=== PATIENT | male | born 1980 | race African-American/Black ===

== ENCOUNTER 2017-06-25 13:37 | Emergency (ER) | payer OTHER ==
[~2017-06-25] VITALS: Ht 175.3 cm; Wt 118.4 kg
[2017-06-25 14:07] VITALS: BP 151/99
[2017-06-25] MEDS ORDERED: TETANUS AND DIPHTHERIA TOX/PF 0.5 ML DISP.SYRIN. VAX IM ONE (14:30)
[2017-06-25] MEDS ORDERED: LIDOCAINE 1% / SOD BICARB 8.4% 20 ML VIAL. IJ ONE (14:30)
--- NOTE | 2017-06-25 15:01 | PHYS DOC ---
Past Medical History Past Medical History: Hypertension Past Surgical History: No Surgical History Alcohol Use: Occasionally Drug Use: None Adult General Chief Complaint Chief Complaint: LACERATION/AVULSION HPI HPI Patient is a 37 year old male presents to the ED complaining of left hand laceration 1 hour. Patient was doing some wood cutting and the saw cut his hand. Describes the pain as sharp. Rates the pain as 8/10. Patient has full range of motion. Denies fever, headache, chest pain, shortness of breath, wrist pain, decreased sensation or paresthesias. Review of Systems Review of Systems Constitutional: Denies fever or chills [] Eyes: Denies change in visual acuity, redness, or eye pain [] HENT: Denies nasal congestion or sore throat [] Respiratory: Denies cough or shortness of breath [] Cardiovascular: No additional information not addressed in HPI [] GI: Denies abdominal pain, nausea, vomiting, bloody stools or diarrhea [] : Denies dysuria or hematuria [] Musculoskeletal: Denies back pain. Complains of left hand pain. Integument: Denies rash or skin lesions [] Neurologic: Denies headache, focal weakness or sensory changes [] Endocrine: Denies polyuria or polydipsia [] Current Medications Current Medications Current Medications Medications (Trade) Dose Ordered Sig/Kelsi Start Time Stop Time Status Last Admin Dose Admin Bacitracin 1 robbie 1X STAT 06/25/17 15:41 06/25/17 15:44 DC 06/25/17 15:52 1 ROBBIE Lidocaine/Sodium Bicarbonate (Buffered Lidocaine 1%) 20 ml 1X ONCE 06/25/17 14:30 06/25/17 14:31 DC 06/25/17 14:41 20 ML Tetanus/ Diphtheria Toxoids (Tenivac Syringe) 0.5 ml ONCE ONCE 06/25/17 14:30 06/25/17 14:31 DC 06/25/17 14:41 0.5 ML Allergies Allergies Allergies Coded Allergies Type Severity Reaction Last Updated Verified No Known Drug Allergies 09/18/13 No Physical Exam Physical Exam Constitutional: Well developed, well nourished, no acute distress, non-toxic appearance. [] HENT: Normocephalic, atraumatic, bilateral external ears normal, oropharynx moist, no oral exudates, nose normal. [] Eyes: PERRLA, EOMI, conjunctiva normal, no discharge. [] Neck: Normal range of motion, no tenderness, supple, no stridor. [] Cardiovascular:Heart rate regular rhythm, no murmur [] Lungs & Thorax: Bilateral breath sounds clear to auscultation [] Abdomen: Bowel sounds normal, soft, no tenderness, no masses, no pulsatile masses. [] Skin: Warm, dry, no erythema or rash. [] Back: No tenderness, no CVA tenderness. [] Extremities: MILD LEFT HAND TENDERNESS. LEFT DORSAL LATERAL 5CM HAND LACERATION. NO TENDON LACERATION. no cyanosis, no clubbing, ROM intact, no edema. [] Neurologic: Alert and oriented X 3, normal motor function, normal sensory function, no focal deficits noted. [] Psychologic: Affect normal, judgement normal, mood normal. [] Current Patient Data Vital Signs Vital Signs Date Time Temp Pulse Resp B/P (MAP) Pulse Ox O2 Delivery O2 Flow Rate FiO2 06/25/17 14:07 98.2 100 18 100 Room Air 98.2 EKG EKG [] Radiology/Procedures Radiology/Procedures PROCEDURE: HAND LEFT 3V EXAM: Left hand, 3 views. HISTORY: Pain. COMPARISON: None. FINDINGS: Frontal, lateral and oblique views of the left hand are obtained. There is no fracture, dislocation or subluxation. IMPRESSION: No acute osseous finding. [] Course & Med Decision Making Course & Med Decision Making Discussed imaging with patient. Patient's pain improved. Vital stable, no acute distress. Laceration repaired. No complications. Tetanus updated. Keflex prescribed. Discussed follow-up with patient for wound reevaluation in 2-3 days. Discussed reasons to return to the ED. Patient understands and agrees with plan. Pertinent Labs and Imaging studies reviewed. (See chart for details) [] Dragon Disclaimer Dragon Disclaimer This electronic medical record was generated, in whole or in part, using a voice recognition dictation system. Departure Departure Impression: Primary Impression: Hand laceration Disposition: 01 HOME, SELF-CARE Condition: IMPROVED Referrals: NO PCP (PCP) KELBY BARRAZA MD Patient Instructions: Laceration Care, Adult Scripts Cephalexin (KEFLEX) 500 Mg Capsule 1 CAP PO TID, #21 CAP Prov: ELSA NI 06/25/17 Laceration/Wound Repair Laceration/Wound Repair : Wound Location: upper extremity Wound's Depth, Shape: superficial Wound Length (cm): 5 Wound Explored: clean Irrigated w/ Saline (ccs): 250 Betadine Prep?: Yes Anesthesia: 1% Lidocaine Wound Repaired With: sutures Suture Size/Type: 4:0 Number of Sutures: 14 Sterile Dressing Applied?: Yes Progress No complications. Patient tolerated well. ELSA NI Jun 25, 2017 15:01
--- NOTE | 2017-06-25 15:26 | RAD ---
EXAM: Left hand, 3 views. HISTORY: Pain. COMPARISON: None. FINDINGS: Frontal, lateral and oblique views of the left hand are obtained. There is no fracture, dislocation or subluxation. IMPRESSION: No acute osseous finding.
[2017-06-25] MEDS ORDERED: BACITRACIN TOPICAL OINT 14GM TUBE. TP STA (15:41)
[2017-06-25] MEDS ORDERED: CEPH-264 PO (15:48)
== END 2017-06-25 16:12 | disposition home or self-care (01) ==
LOC: ER 13:37
DX: S61.412A Laceration without foreign body of left hand, initial encounter (principal); I10 Essential (primary) hypertension; W27.8XXA Contact with other nonpowered hand tool, initial encounter; Y93.89 Activity, other specified; Y99.8 Other external cause status; Y92.89 Other specified places as the place of occurrence of the external cause
CPT/HCPCS: 12002; 73130; 90471; 90714; 99284-25